=== PATIENT | female | born 1995 | race Caucasian/White ===

== ENCOUNTER 2020-01-31 18:34 | Emergency (ER) | payer SELFPAY ==
[~2020-01-31] VITALS: Ht 165.1 cm; Wt 85.3 kg
--- NOTE | 2020-01-31 19:31 | NUR ---
PT TO RROM FROM LOBBY AT THIS TIME.
--- NOTE | 2020-01-31 19:55 | NUR ---
PT C/O ABD PAIN SINCE TUESDAY AND STARTED MENSES ON TUESDAY WITH CRAMPING AND BLEEDING. PT REPORTS BRIEF EPISODES OF N/V ON TUESDAY BUT NONE SINCE. PT HAS HX OF OVARIAN CYSTS AND IS WORRIED THAT IS WHAT IS CAUSING THE PAIN.
--- NOTE | 2020-01-31 20:03 | NUR ---
WAITING FOR MD EVALUATION. AND ORDERS.
[2020-01-31 20:50] LABS: MICROSCOPIC INDICATED
[2020-01-31 21:11] LABS: BASOPHILS # (AUTO) 0.03 x10^3/uL (0-0.1); BASOPHILS % (AUTO) 1 % (0-1); EOSINOPHILS # (AUTO) 0.28 x10^3/uL (0-0.4); EOSINOPHILS % (AUTO) 5 % (1-7); LYMPHOCYTES # (AUTO) 2.47 x10^3/uL (1-3.4); LYMPHOCYTES % (AUTO) 40 % (22-44); MD NO; MEAN CORPUSCULAR HEMOGLOBIN 30.2 pg (27.0-34.8); MEAN CORPUSCULAR HGB CONC 33.3 g/dL (32.4-35.8); MEAN CORPUSCULAR VOLUME 90.7 fL (80-100); MEAN PLATELET VOLUME 7.8 fL (7.4-10.4); MONOCYTES # (AUTO) 0.38 x10^3/uL (0.2-0.8); MONOCYTES % (AUTO) 6 % (2-9); NEUTROPHILS # (AUTO) 3.01 x10^3/uL (1.8-6.8); NEUTROPHILS % (AUTO) 49 % (42-75); PLATELET COUNT 289 x10^3/uL (130-400); RED BLOOD COUNT 4.56 x10^6/uL (3.82-5.3); RED CELL DISTRIBUTION WIDTH 13.4 % (9.6-15.2)
[2020-01-31 21:25] LABS: ALBUMIN 3.6 g/dL (3.4-5.0); ANION GAP 3 mmol/L (5-15); CALCIUM 8.7 mg/dL (8.5-10.1); CHLORIDE 113 mmol/L (98-107); CREATININE 0.88 mg/dL (0.55-1.02)
[2020-01-31 21:49] VITALS: BP 118/79
== END 2020-01-31 21:51 | disposition home or self-care (01) ==
LOC: ED 21:04
DX: R10.31 Right lower quadrant pain (principal); R10.32 Left lower quadrant pain
CPT/HCPCS: 36415; 76830; 80048; 81001; 82040; 84702; 85025; 87086; 99284

== ENCOUNTER 2021-01-26 21:52 | Emergency (ER) | payer BC, OTHER ==
[~2021-01-26] VITALS: Ht 154.9 cm; Wt 80.0 kg
[2021-01-26 22:05] VITALS: BP 110/89
--- NOTE | 2021-01-26 22:23 | NUR ---
TASK RN: PT. TO ROOM FROM LOBBY AT THIS TIME.
[2021-01-26] MEDS ORDERED: L.E.T SOLUTION TP ONE ×2 (22:27→22:30)
[2021-01-26] MEDS ORDERED: LIDOCAINE-MPF 1%, 5ML INFIL ONE (22:30)
[2021-01-26] MEDS ORDERED: LIDOCAINE 1%-EPI 1:100K, 20ML ONE (23:13)
== END 2021-01-26 23:44 | disposition home or self-care (01) ==
LOC: ED 22:22
DX: N75.1 Abscess of Bartholin's gland (principal); F17.200 Nicotine dependence, unspecified, uncomplicated
CPT/HCPCS: 56420; 99284

== ENCOUNTER 2021-03-17 01:48 | Emergency (ER) | payer SELFPAY ==
[~2021-03-17] VITALS: Ht 154.9 cm; Wt 80.0 kg
[2021-03-17 01:50] VITALS: BP 119/76
--- NOTE | 2021-03-17 02:23 | NUR ---
Break RN: patient presents to ER c/o RUQ abd pain x3 hours. Denies N/V/D or urinary symptoms. No hx of same. No hx of kidney stones. No GI problems. Patient did not take anything for the pain at home. Patient is in NAD. REspirations even and unlabored.
[2021-03-17] MEDS ORDERED: KETOROLAC 30 MG/1 ML ONE (02:25)
[2021-03-17] MEDS ORDERED: ONDANSETRON ODT 4 MG ONE (02:25)
[2021-03-17] MEDS ORDERED: KETOROLAC 30 MG/1 ML IM ONE (02:30)
[2021-03-17] MEDS ORDERED: ONDANSETRON ODT 4 MG PO ONE (02:30)
[2021-03-17 02:36] LABS: BASOPHILS % (AUTO) 1 % (0-1); EOSINOPHILS % (AUTO) 8 % (1-7); LYMPHOCYTES % (AUTO) 27 % (22-44); MEAN CORPUSCULAR HEMOGLOBIN 31.4 pg (27.0-34.8); MEAN CORPUSCULAR HGB CONC 34.4 g/dL (32.4-35.8); MEAN PLATELET VOLUME 7.3 fL (7.4-10.4); MONOCYTES % (AUTO) 5 % (2-9); NEUTROPHILS % (AUTO) 59 % (42-75); PLATELET COUNT 234 x10^3/uL (130-400); RED BLOOD COUNT 4.28 x10^6/uL (3.82-5.3); RED CELL DISTRIBUTION WIDTH 12.9 % (9.6-15.2)
[2021-03-17 02:44] LABS: MICROSCOPIC INDICATED
[2021-03-17 02:44] LABS: ALANINE AMINOTRANSFERASE 20 U/L (12-78); ALBUMIN 3.2 g/dL (3.4-5.0); ANION GAP 3 mmol/L (5-15); CALCIUM 8.4 mg/dL (8.5-10.1); CHLORIDE 111 mmol/L (98-107); CREATININE 0.73 mg/dL (0.55-1.02)
[2021-03-17 02:48] LABS: ALKALINE PHOSPHATASE 66 U/L (45-117); BILIRUBIN,TOTAL 0.2 mg/dL (0.2-1.0); TOTAL PROTEIN 6.4 g/dL (6.4-8.2)
--- NOTE | 2021-03-17 04:31 | NUR ---
Pt resting comfortably ,in no acute distress, awaiting US results. States pain has improved.
== END 2021-03-17 05:06 | disposition home or self-care (01) ==
LOC: ED 02:38
DX: K80.70 Calculus of gallbladder and bile duct without cholecystitis without obstruction (principal); R10.11 Right upper quadrant pain; R11.0 Nausea
CPT/HCPCS: 36415; 76700; 80053; 81001; 83690; 84703; 85025; 96372; 99284; J1885; Q0162